=== PATIENT | female | born 1995 | race Caucasian/White ===

== ENCOUNTER 2024-03-23 22:25 | Emergency (ER) | payer OTHER ==
[~2024-03-23] VITALS: Ht 170.2 cm; Wt 77.1 kg
[2024-03-23 22:38] VITALS: BP_SYST 160; PULSE 89; RESP 20; TEMP 98.4; O2SAT 100
[2024-03-23 23:56] LABS: BILIRUBIN,URINE NEGATIVE (NEGATIVE); BLOOD, URINE NEGATIVE (NEGATIVE); CLARITY/URINE SL CLOUDY (CLEAR); COLOR,URINE YELLOW (YELLOW); GLUCOSE,URINE NEGATIVE (NEGATIVE); KETONES,URINE NEGATIVE (NEGATIVE); LEUKOCYTE ESTERASE ,URINE 1+ (NEGATIVE); NITRITE, URINE NEGATIVE (NEGATIVE); PROTEIN URINE NEGATIVE (NEGATIVE); UROBILINOGEN,URINE 0.2 (0.2-1.0)
[2024-03-24 00:57] LABS: BACTERIA,URINE RARE /HPF (None Seen)
[2024-03-24] MEDS ORDERED: CIPR500T5 PO (01:00)
[2024-03-24 01:11] VITALS: BP_SYST 160; PULSE 89; RESP 20; TEMP 98.4; O2SAT 100
== END 2024-03-24 01:10 | disposition home or self-care (01) ==
LOC: SED 22:25
DX: N39.0 Urinary tract infection, site not specified (principal); R10.30 Lower abdominal pain, unspecified; Z79.899 Other long term (current) drug therapy
CPT/HCPCS: 81000; 81001; 81015; 99283